=== PATIENT | male | born 1955 | race Caucasian/White ===

== ENCOUNTER 2018-09-08 10:37 | Day surgery (SDC) | payer OTHER, MEDICAID, SELFPAY ==
[2018-08-31 15:25] VITALS: BMI 27.8
--- NOTE | 2018-09-08 | PATH_ITS ---
[facility] Accession Number: [id number] . 01 Material submitted: . LEFT LOWER BACK . 01 Clinical history: . SUBFACIAL MASS PROBABLE LIPOMA . 01 Diagnosis: Left Lower Back Mass, Excision: Mature adipose tissue, consistent with lipoma. Negative for malignancy. MRV/09/12/2018 . 01 Electronically signed: . Val Cramer MD, Pathologist NPI- [id number] . 01 Gross description: . Received in formalin, labeled left lower back subfascial mass, probable lipoma, are multiple pieces of galeas-yellow, rubbery adipose tissue (4.3 x 4.2 x 1.5 cm in aggregate) with homogenous unremarkable cut surfaces. The tissue is inked black. [employer] tissue submitted in cassettes A1 and A2. ([id number]) /FRR . 01 Pathologist provided ICD-10: D17.9 . 01 CPT . 808920 Specimen Comment: A duplicate report has been generated due to demographic updates. Performed at: [address] [facility] [address], [place], [place] [id number] MD Alonso Gil MD Phone: [phone]
[2018-09-08 11:22] VITALS: BP 186/101; PULSE 51; RESP 16; TEMP 36.4; O2SAT 100; BMI 27.8
--- NOTE | 2018-09-08 11:40 | PM.PREOP ---
Pre-operative Note Interval Note Pre-op Check: Yes History & Physical Reviewed by Physician and Yes Exam Performed Changes: No H&P completed within 30 days and has changed as indicated here:: Performed 08/09/2018
[2018-09-08] MEDS: LACTATED RINGERS 1,000 ML 100 ML IV (11:42)
[2018-09-08] MEDS: CEFAZOLIN 2 GM/100 ML FROZ.PIGGY IV (12:10)
--- NOTE | 2018-09-08 12:30 | SUR.OPER ---
Lateral on padded OR bed. Gel axillary roll. Arms secured on padded armboard with pillow supporting top arm. Padded hip positioner braces x4 - anterior and posterior chest and pelvis. Additional gel pad used anterior pelvis. Gel pad under bottom leg from knee to foot and secured with tape over sheet. Right lateral position
[2018-09-08] MEDS: BUPIVACAINE 0.5% (PF) VIAL 30 ML INJ (12:38)
[2018-09-08 13:11] VITALS: BP 161/101; PULSE 52; RESP 16; TEMP 36.7; O2SAT 98
--- NOTE | 2018-09-08 13:19 | PM.OP.1 ---
Operative Date/Time/Diagnoses Date of procedure: 09/08/18 Time of procedure: 13:09 Pre-op diagnosis: Soft tissue mass left lower back consistent clinically with a lipoma Post-op diagnosis: same Procedure & Clinicians Procedure: Excision of mass measuring 4 cm in largest dimension. Subfascial in location. Same procedure as scheduled: Yes Indications: Symptomatic lower back mass Click Yes if Unassisted: Yes Anesthesia Type: Sedation Operative Notes Findings: Subfascial soft tissue mass consistent clinically with a lipoma. Removed in 2 pieces. Closure Type: primary Specimen(s): other (Mass sent) Implants & Drains: None Estimated Blood Loss (mL): 10 Blood products transfused: none Procedure in detail: Patient was placed in the right lateral decubitus position underwent deep sedation monitored anesthesia care. He was prepped and draped in the usual fashion. Local anesthetic was infiltrated and a transverse incision made over this mass. The mass was somewhat mobile. I went through fashion in order to reach the mass which went down to near of bone and muscle level. I the mass from surrounding structures of was careful not to disrupt any nerves. The mass was removed in 2 pieces. Cautery was used to control any minor residual bleeding. The wound was irrigated. The fascia was reapproximated with 3 0 Polysorb. The skin was closed running 4 0 Polysorb subcuticular stitch and Steri-Strips. Dressing was applied the patient was taken to preop area in good condition. Complications: none Condition: stable Disposition: same day surgery Plan for aftercare: Follow-up in about 2 weeks.
== END 2018-09-08 13:53 | disposition home or self-care (01) ==
PROVIDERS: Family Provider Family Medicine; PCP Family Medicine; Visit Provider Specialist
PROC: (CPT 21932; principal; 2018-09-08 11:15)
DX: D17.9 Benign lipomatous neoplasm, unspecified (principal); M54.89 Other dorsalgia
CPT/HCPCS: 21932; J0690; J2250; J2704; J3010

== ENCOUNTER 2019-06-26 14:23 | Day surgery (SDC) | payer OTHER, MEDICAID, SELFPAY ==
[2019-06-22 14:59] VITALS: BMI 27.8
[2019-06-26] VITALS (9 sets, daily range): BP systolic 144–173; BP diastolic 79–99; PULSE 62–80; RESP 11–16; TEMP 36.1–37.3; O2SAT 96–99; BMI 27.9
--- NOTE | 2019-06-26 | PATH_ITS ---
[facility] Accession Number: [id number] . 01 Material submitted: . PART A: back - LEFT LOWER BACK PART B: back - RIGHT LOWER BACK . 01 Clinical history: . A: LIPOMA 7 X 4 CM B: LIPOMA 5 X 4 CM . 02 Diagnosis: A. Tissue From Left Lower Back: Lipoma, negative for atypia. . B. Tissue From Right Lower Back: Lipoma, negative for atypia. MRV/06/28/2019 . 02 Electronically signed: . Gera Reyna MD, Pathologist NPI- [id number] . 01 Gross description: . (A) Received in formalin, labeled lipoma left lower back, 7 x 4 cm, is a piece of galeas-yellow partially membranous rubbery adipose tissue (7.2 x 5.1 x 1.5 cm) with a homogeneous unremarkable cut surface. Wireless Engineer tissue is submitted in cassettes A1-A3. (B) Received in formalin, labeled lipoma right lower back, 5 x 4 cm, are multiple pieces of galeas rubbery adipose tissue (6.8 x 5.5 x 2.3 cm in aggregate) with homogeneous unremarkable cut surfaces. Wireless Engineer tissue is submitted in cassettes B1 and B2. ([id number]) /MRV . 02 Pathologist provided ICD-10: D17.1 . 02 CPT . 475186, 610064 Performed at: [facility] [address], [place], [place] [id number] MD Alonso Gil MD Phone: [phone] [facility]formed at: [facility] [address] [place], [place] [id number] MD Natali Porter MD Phone: [phone]
[2019-06-26] MEDS: LACTATED RINGERS 1,000 ML 42 ML IV ×2 (15:45→17:17)
--- NOTE | 2019-06-26 16:15 | PM.HP.1 ---
History of Present Illness Date Patient Seen: 06/26/19 Time Patient Seen: 16:15 Chief complaint: [id number] [place] [id number] x2 EXCISION BACK LIPOMAS Narrative: Patient is gentleman here for removal of lipomas of his lower back. Patient is now giving us a history that he may have dengue fever. He may have had a bleed into his brain which was not related at his last visit. 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) Surgical History (Updated 06/26/19 @ 16:19 by Chapo Ward MD) H/O bilateral inguinal hernia repair (Resolved) H/O umbilical hernia repair (Resolved) Status post excision of lipoma (Resolved) Social History household members: none Smoking Status: Never smoker alcohol intake: current Family & Social History Social History: household members none Tobacco & Substance use: Smoking Status Never smoker alcohol intake current alcohol intake frequency a few times a week Substance Use Type does not use Meds Home Medications Medication Instructions Recorded Confirmed Type alprazolam 1 mg PO BEDTIME #0 07/04/17 06/26/19 History amlodipine [Norvasc] 10 mg PO QDAY #0 07/04/17 06/26/19 History losartan 50 mg tablet 50 mg PO DAILY tab 08/09/18 06/26/19 History dexamethasone See Rx Instructions .ROUTE .COMPLEX 06/26/19 06/26/19 History Allergies Allergy/AdvReac Type Severity Reaction Status Date / Time garlic [GARLIC] Allergy Unknown Verified 06/26/19 15:21 Review of Systems Review of Systems No chest pain or heart problems he is aware of. No acute respiratory problems. No black or bloody bowel movements. No seizures. Exam Vital Signs (past 8 hours): - 06/26/19 15:35 Temperature 99.1 F Pulse Rate 62 Respiratory Rate 16 Blood Pressure 165/90 H Pulse Oximetry 99 Oxygen Delivery Method Room Air Narrative Exam Narrative: No apparent distress. Lungs are clear. Heart regular rate and rhythm without murmur gallop. Patient has soft tissue masses lower back 1 on each side. The 1 a left is lateral to a scar from his prior excision of a lipoma. The mass on the right is just to the side of his midline. It feels like soft tissue consistent with a lipoma. Difficult to measure these lesions. The 1 on the right is actually less prominent since he began taking steroids per his history. He had trouble finding a today and I actually located it. Assessment & Plan Assessment & Plan narrative: Probable lipomas. We will excise due to symptoms. I have discussed this with the patient including risks of bleeding infection recurrence. He appears to understand wishes to proceed.
[2019-06-26] MEDS: CEFAZOLIN 2 GM/100 ML FROZ.PIGGY IV (16:20)
--- NOTE | 2019-06-26 16:21 | PM.PREOP ---
Pre-operative Note Interval Note History & Physical reviewed/Exam performed by Physician: Yes Changes to H&P: No
--- NOTE | 2019-06-26 16:46 | SUR.OPER ---
Prone on padded OR bed, head in foam head support, gel chest rolls, gel pad under knees, pillow under lower legs, toes free of pressure, arms secured on padded arm boards at <90 degrees abduction. Safety belt at thigh.
[2019-06-26] MEDS: BUPIVACAINE 0.5% (PF) VIAL 30 ML INJ (16:53)
--- NOTE | 2019-06-26 18:01 | PM.OP.1 ---
Operative Date/Time/Diagnoses Date of procedure: 06/26/19 Time of procedure: 18:01 Pre-op diagnosis: Lipomas of the lower back Post-op diagnosis: same (Left side measured 7 x 4 cm. The right side measured 5 x 4) Procedure & Clinicians Procedure: Excision lipomas of the back. Same procedure as scheduled: Yes Indications: Symptomatic masses lower back clinically lipomas. Surgeon: Chapo Ward Click Yes if Unassisted: Yes Anesthesia Type: General Operative Notes Findings: Fatty masses of lobulated fat lower back. Deep to the superficial fascia external to the paraspinal muscles. Closure Type: primary Specimen(s): other (Fatty masses) Prosthetic devices, grafts, tissues, transplants, or devices: None Estimated Blood Loss (mL): 20 Blood products transfused: none Procedure in detail: Patient was placed prone on the operating room table after undergoing general endotracheal anesthesia. He was prepped and draped in the usual fashion. Transverse incision was made overlying the mass on the left which partially encompassed the scar from the prior excision of a lipoma. The dissection was carried down through the superficial fascia into the deep fat. Large globular fat was identified from surrounding structures. Cautery is used principally dissected out. Specimen was removed. The patient had meticulous hemostasis achieved. The fascia was closed with interrupted 3 0 Vicryl. The skin was closed running 4 0 Vicryl subcuticular stitch. Attention was turned to the other side. No most identical operation was performed except the incision was about 5 cm in length where the opposite side was about 7. Closure was in an identical fashion. Mastisol and Steri-Strips were applied after let injecting local anesthetic around both incisions. Dressing was applied the patient was awakened turned onto his stretcher extubated taken recovery area in good condition Complications: none Condition: stable Disposition: PACU
--- NOTE | 2019-06-26 18:15 | SUR.PHASEI ---
Dr. Ward aware patient plans to take a taxi home. VVO ok for patient to take a taxi home.
--- NOTE | 2019-06-26 18:50 | SUR.PHASEII ---
pt into phase II, will get some sleep while waiting [place] the 9pm ferry to [place], plan is to call taxi approx. 8pm and get pt. ready for d/c, once taxi here for transport.
--- NOTE | 2019-06-26 19:02 | SUR.PHASEII ---
pt. up ambulating to bathroom Indep. with IV pole, steady gait, no c/o pain. dressing(s) CDI
--- NOTE | 2019-06-26 19:25 | SUR.PHASEII ---
pt. up amb. to/from B.R. without any problems. IV d/c'd at this time
== END 2019-06-26 19:45 | disposition home or self-care (01) ==
LOC: OR 14:24
PROVIDERS: Family Provider Family Medicine; PCP Family Medicine; Visit Provider Specialist
PROC: (CPT 21931; principal; 2019-06-26 14:15)
DX: D17.1 Benign lipomatous neoplasm of skin and subcutaneous tissue of trunk (principal); I10 Essential (primary) hypertension
CPT/HCPCS: 21931 ×2; J0330; J0690; J1100; J2250; J2405; J2704; J3010

== ENCOUNTER → 2019-12-12 17:01 | Outpatient (CLI) | payer OTHER, MEDICAID, SELFPAY ==
--- NOTE | 2019-12-12 | DI.RAD.S_ITS ---
PROCEDURE: XR LUMBAR SPINE 2-3V INDICATIONS: Radiculopathy TECHNIQUE: 3 views of the lumbar spine were acquired. COMPARISON: [facility], CT, ABDOMEN/PELVIS WITH CONTRAST, 07/05/2017, 1:32. FINDINGS: Bones: 5 [id number] vertebrae are present. Minimal degenerative retrolisthesis of L2 on L3. Multilevel disc space loss. There is multilevel posterior facet hypertrophic arthropathy spanning from L3-L4 through L5-S1. Suspect canal stenosis.. No vertebral body compression fractures. No suspicious bony lesions. Probable bone island, right iliac bone, above the acetabulum. Probable bone island left iliac wing. Soft tissues: Overlying bowel gas pattern is normal. No suspicious soft tissue calcifications. IMPRESSION: Multilevel degenerative disc space loss and advanced for lumbar facet arthropathy. Probable bilateral iliac bone bone islands. Dictated by: William Cowan M.D. on 12/13/2019 at 9:09 Approved by: William Cowan M.D. on 12/13/2019 at 9:11
--- NOTE | 2019-12-12 | DI.RAD.S_ITS ---
PROCEDURE: XR CERVICAL SPINE 2V OR 3V INDICATIONS: Radiculopathy TECHNIQUE: 3 view(s) of the cervical spine were acquired. COMPARISON: None. FINDINGS: Bones: No fractures or dislocations to the T2 level. The lateral masses of C1 appear intact on the odontoid view. No suspicious bony lesions. Cervical spondylosis centered at C4-C5 and C5-C6. Chronic disc height loss at these levels. Soft tissues: No prevertebral soft tissue swelling. IMPRESSION: Cervical spondylosis centered at C4-C5 and C5-C6. No evidence acute cervical fracture or dislocation. Dictated by: William Cowan M.D. on 12/13/2019 at 9:11 Approved by: William Cowan M.D. on 12/13/2019 at 9:13
== END ==
PROVIDERS: Family Provider Family Medicine; PCP Family Medicine; Referring Provider Family Medicine; Visit Provider Family Medicine
DX: M47.22 Other spondylosis with radiculopathy, cervical region (principal); M47.26 Other spondylosis with radiculopathy, lumbar region; M47.27 Other spondylosis with radiculopathy, lumbosacral region
CPT/HCPCS: 72040; 72100

== ENCOUNTER → 2022-02-02 09:40 | Outpatient (CLI) | payer MEDICARE, OTHER, MEDICAID, SELFPAY | PROVIDERS: Family Provider Family Medicine; PCP Family Medicine | DX: R50.9 Fever, unspecified (principal) | CPT/HCPCS: 87207 ==

== ENCOUNTER → 2022-03-20 15:40 | Outpatient (CLI) | payer MEDICARE, OTHER, MEDICAID, SELFPAY ==
[2022-03-23 21:44] LABS: Campylobacter Not Detected (Not Detect); Clostridium difficile toxin AB Not Detected (Not Detect); Plesiomonsa shigelloides Not Detected (Not Detect); Salmonella Not Detected (Not Detect); Vibrio Not Detected (Not Detect); Vibrio cholerae Not Detected (Not Detect); Yersinia enterocolitica Not Detected (Not Detect)
[2022-03-23 21:45] LABS: Adenovirus F 40/41 Not Detected (Not Detect); Astrovirus Not Detected (Not Detect); Cryptosporidium Not Detected (Not Detect); Cyclospora cayetanensis Not Detected (Not Detect); Entamoeba histolytica Not Detected (Not Detect); Enteroaggregative E.coli Not Detected (Not Detect); Enteropathogenic E.coli Not Detected (Not Detect); Enterotoxigenic E.coli It/st Not Detected (Not Detect); Giardia lamblia Not Detected (Not Detect); Norovirus GI/GII Not Detected (Not Detect); Rotavirus A Not Detected (Not Detect); Sapovirus Not Detected (Not Detect); Shiga-like toxin-prod E.coli Not Detected (Not Detect); Shigella/Enteroinvasive E.coli Not Detected (Not Detect)
== END ==
PROVIDERS: Physician Assistant; Family Provider Family Medicine; PCP Family Medicine
DX: R19.7 Diarrhea, unspecified (principal); Z86.19 Personal history of other infectious and parasitic diseases
CPT/HCPCS: 87507

== ENCOUNTER → 2024-02-03 14:20 | Outpatient (CLI) | payer MEDICARE, OTHER, MEDICAID, SELFPAY ==
[2024-02-03 20:58] LABS: BUN Creatinine Ratio 23.9 (6-22); Blood Urea Nitrogen 28 mg/dL (9-20); Calcium 9.6 mg/dL (8.4-10.2); Carbon Dioxide 28 mmol/L (22-32); Chloride 106 mmol/L (98-107); Estimated Glomerular Filt Rate > 60 mL/min (>60); Glucose 99 mg/dL (80-110); HEMOLYSIS < 15 (0-50); Sodium 140 mmol/L (137-145)
== END ==
PROVIDERS: Family Provider Family Medicine; PCP Physician Assistant Medical; Visit Provider Internal Medicine
DX: I1A.0 Resistant hypertension (principal)
CPT/HCPCS: 80048

== ENCOUNTER → 2024-12-05 11:25 | Outpatient (CLI) | payer MEDICARE, MEDICAID, SELFPAY ==
[2024-12-05 18:48] LABS: Alanine Aminotransferase 20 IU/L (<50); Albumin 4.1 g/dL (3.5-5.0); Albumin Globulin Ratio 1.9 (1.0-2.8); Alkaline Phosphatase 54 U/L (38-126); Aspartate Aminotransferase 25 IU/L (17-59); BUN Creatinine Ratio 19.5 (6-22); Bilirubin Total 0.4 mg/dL (0.2-1.3); Blood Urea Nitrogen 23 mg/dL (9-20); Calcium 9.6 mg/dL (8.4-10.2); Carbon Dioxide 30 mmol/L (22-32); Chloride 105 mmol/L (98-107); Cholesterol 204 mg/dL (140-199); Estimated Glomerular Filt Rate > 60 mL/min (>60); Globulin 2.2 g/dL (1.7-4.1); Glucose 96 mg/dL (80-110); HDL Cholesterol 39 mg/dL (40-60); HEMOLYSIS < 15 (0-50); LDL Cholesterol Calculated 126 mg/dL (<100); Potassium 4.2 mmol/L (3.4-5.1); Sodium 141 mmol/L (137-145); Total Protein 6.3 g/dL (6.3-8.2); Triglycerides 193 mg/dL (35-150)
[2024-12-05 18:52] LABS: Hemoglobin A1C% w Est Avg Glu 5.6 % (4.0-6.0)
== END ==
PROVIDERS: Family Provider Family Medicine; PCP Physician Assistant Medical; Visit Provider Family Medicine
DX: R73.03 Prediabetes (principal); Z95.5 Presence of coronary angioplasty implant and graft; I1A.0 Resistant hypertension; R00.2 Palpitations; I10 Essential (primary) hypertension
CPT/HCPCS: 80053; 80061; 83036

== ENCOUNTER → 2025-08-29 13:47 | Outpatient (CLI) | payer MEDICARE, MEDICAID, SELFPAY ==
--- NOTE | 2025-08-29 | DI.MRI.S_ITS ---
PROCEDURE: MR ABDOMEN ADRENAL PROTOCOL INDICATIONS: Adrenal Nodule TECHNIQUE: Coronal HASTE, axial 2-D FLASH in- and [id number] with subtractions from the hepatic dome to the iliac crests. COMPARISON: [facility], CT, ABDOMEN/PELVIS WITH CONTRAST, 07/05/2017, 1:32. [facility], CT, CT KUB, 02/07/2023, 14:51. FINDINGS: Image quality: Diagnostic. Adrenal Glands: Right adrenal nodule measuring 1 cm, (4/32), unchanged in size since at least 2017 suggesting a benign etiology. No definite signal dropout on the opposed phase images to suggest microscopic fat. No left adrenal nodule. OTHER: Lung bases: No pleural effusion. Liver: Multiple T2 hyperintense cysts. Small previously characterized hemangioma in the right liver measuring 2.5 cm, (7/32), similar in size. Not well evaluated on this noncontrast exam. Gallbladder: No gallstones or wall thickening. Biliary ducts: No biliary dilation. Pancreas: No ductal dilation. No cyst. Spleen: Size is within normal limits. Kidneys and Ureters: No hydronephrosis. No solid mass. Small T2 hyperintense cysts. Stomach and Bowel: Normal colonic caliber, without significant wall thickening. Diverticulosis. Peritoneum: No abnormal intraperitoneal fluid. Ventral Wall: No hernia. Susceptibility artifact at the umbilicus. Abdominal Nodes: No retroperitoneal or mesenteric adenopathy by size criteria. Vessels: Aorta and inferior vena cava are normal in size. Pelvis: No pelvic mass. Bones: No aggressive osseous abnormality. IMPRESSION: 1. Right adrenal nodule measuring 1 cm. Unchanged since 2017. Most likely a lipid poor benign adenoma. 2. No biliary or pancreatic ductal dilatation. Dictated by: Wenceslao Schilling M.D. on 08/30/2025 at 8:42 Approved by: Wenceslao Schilling M.D. on 08/30/2025 at 8:50
== END ==
PROVIDERS: Family Provider Family Medicine; PCP Family Medicine; Referring Provider Family Medicine; Visit Provider Family Medicine
DX: E27.9 Disorder of adrenal gland, unspecified (principal); K76.89 Other specified diseases of liver; N28.1 Cyst of kidney, acquired
CPT/HCPCS: 74181